=== PATIENT | male | born 1990 | race Caucasian/White ===

== ENCOUNTER 2017-01-24 23:53 | Emergency (ER) | payer OTHER ==
[2017-01-25 00:09] VITALS: TEMP 97.6; BMI 26.5
[2017-01-25] MEDS ORDERED: FAMOTIDINE 20 MG/50 ML IVPB 50 ML IVPB ONE ×2 (00:11→00:24)
[2017-01-25] MEDS ORDERED: methylPREDNISolone NA SUCC 125 MG/2 ML VIAL ONE (00:11)
[2017-01-25] MEDS ORDERED: methylPREDNISolone NA SUCC 125 MG/2 ML VIAL IVPB ONE (00:24)
[2017-01-25] MEDS ORDERED: SODIUM CHLORIDE 0.9% 1000 ML INFUS.BAG IV ONE (00:24)
--- NOTE | 2017-01-25 00:47 | PDOC ---
History of Present Illness - General Chief Complaint: Allergic Reaction Stated Complaint: ALLERGIC REACTION Time Seen by Provider: 01/25/17 00:10 History Source: Patient Exam Limitations: No Limitations - History of Present Illness Initial Comments: 01/25/17 00:43 Patient is a 26 year old male with no pmhx c/o allergic reaction since 8 am this morning. States not allergies to any meds of food, however woke up with some itching then tonight started to have hives which started to spread over the body. States he feels a little tightness in the throat. Denies SOB, PMD: Dr. Justin PMH: as above PSOCHX: neg etoh, durg, cig ALL: beeswax GENERAL/CONSTITUTIONAL: [No fever or chills. No weakness. No weight change.] HEAD, EYES, EARS, NOSE AND THROAT: [No change in vision. No ear pain or discharge. No sore throat.] CARDIOVASCULAR: [No chest pain or shortness of breath.] RESPIRATORY: [No cough, wheezing, or hemoptysis.] GASTROINTESTINAL: [No nausea, vomiting, diarrhea or constipation. No rectal bleeding.] GENITOURINARY: [No dysuria, frequency, or change in urination.] MUSCULOSKELETAL: [No joint or muscle swelling or pain. No neck or back pain.] SKIN AND BREASTS: (+) rash or easy bruising.] NEUROLOGIC: [No headache, vertigo, loss of consciousness, or loss of sensation.] PSYCHIATRIC: [No depression or anxiety.] ENDOCRINE: [No increased thirst. No abnormal weight change.] HEMATOLOGIC/LYMPHATIC: [No anemia, easy bleeding, or history of blood clots.] ALLERGIC/IMMUNOLOGIC: [No hives or skin allergy. No latex allergy.] GENERAL: [The patient is awake, alert, and fully oriented, in no acute distress. ] HEAD: [Normal with no signs of trauma.] EYES: [Pupils equal, round and reactive to light, extraocular movements intact, sclera anicteric, conjunctiva clear.] ENT: [Ears normal, nares patent, oropharynx clear without exudates. Moist mucous membranes, uvula midline, no swelling in the throat] NECK: [Normal range of motion, supple without lymphadenopathy, JVD, or masses.] LUNGS: [Breath sounds equal, clear to auscultation bilaterally. No wheezes, and no crackles.] HEART: [Regular rate and rhythm, normal S1 and S2 without murmur, rub.] ABDOMEN: [Soft, nontender, normoactive bowel sounds. No guarding, no rebound. No masses.] EXTREMITIES: [Normal range of motion, no edema. No clubbing or cyanosis. No cords, erythema, or tenderness.] NEUROLOGICAL: [Cranial nerves II through XII grossly intact. Normal speech, normal gait.] PSYCH: [Normal mood, normal affect.] SKIN: (+) erythema generalized, (+) hives generalized noted.] 01/25/17 00:47 Past History - Past Medical History Allergies/Adverse Reactions: Allergies Allergy/AdvReac Type Severity Reaction Status Date / Time beeswax Allergy Itching Verified 01/25/17 00:09 Home Medications: Ambulatory Orders Ibuprofen [Motrin] 800 mg PO TID #20 tablet 05/31/14 Oxycodone HCl/Acetaminophen [Percocet 5-325 mg Tablet] 1 - 2 tab PO Q6H #20 tablet 05/31/14 Diphenhydramine HCl [Benadryl -] 50 mg PO Q6H #28 capsule 01/25/17 Epinephrine [Epipen 2-Ronak] 0.3 mg IJ ASDIR #1 kit 01/25/17 Famotidine [Pepcid] 20 mg PO DAILY #5 tablet 01/25/17 Prednisone [Deltasone -] 40 mg PO DAILY #6 tablet 01/25/17 - Psycho/Social/Smoking Cessation Hx Anxiety: No Suicidal Ideation: No Smoking Status: No Smoking History: Unknown if ever smoked Have you smoked in the past 12 months: No Number of Cigarettes Smoked Daily: 1 Information on smoking cessation initiated: No Hx Alcohol Use: No Drug/Substance Use Hx: No Substance Use Type: None *Physical Exam - Vital Signs Last Vital Signs Temp Pulse Resp BP Pulse Ox 97.6 F 67 18 128/64 98 01/25/17 00:06 01/25/17 00:06 01/25/17 00:06 01/25/17 00:06 01/25/17 00:06 ED Treatment Course - Medications Given in the ED: ED Medications Discontinued Medications Generic Name Dose Route Start Last Admin Trade Name Freq PRN Reason Stop Dose Admin Diphenhydramine HCl 50 mg 01/25/17 00:24 01/25/17 00:27 Benadryl Injection - IVPUSH 01/25/17 00:25 50 mg ONCE ONE Administration Methylprednisolone Sodium Succinate 125 mg 01/25/17 00:24 01/25/17 00:28 Solu-Medrol - IVPB 01/25/17 00:25 125 mg ONCE ONE Administration Sodium Chloride 1,000 ml 01/25/17 00:24 01/25/17 00:27 Normal Saline - IV 01/25/17 00:25 1,000 ml ONCE ONE Administration Medical Decision Making - Medical Decision Making 01/25/17 00:48 Patient is a 26 year old male with no pmhx c/o allergic reaction since 8 am this morning. Allergy unknown, not anaphylaxis will give benadryl 50mg IV, Solumedrol 125mg IV, Pepcid 20mg IV. 01/25/17 02:12 Hive resolving, no stridor, no sob I discussed the physical exam findings, ancillary test results and final diagnoses with the patient. I answered all of the patient's questions. The patient was satisfied with the care received and felt comfortable with the discharge plan and treatment plan. The Patient agrees to follow up with the primary care physician within 24-72 hours. *DC/Admit/Observation/Transfer Diagnosis at time of Disposition: Allergic reaction Qualifiers: Encounter type: initial encounter Qualified Code(s): T78.40XA - Allergy, unspecified, initial encounter - Discharge Dispostion Disposition: HOME Condition at time of disposition: Stable - Prescriptions Prescriptions: Diphenhydramine HCl [Benadryl -] 50 mg PO Q6H #28 capsule Prednisone [Deltasone -] 40 mg PO DAILY #6 tablet Epinephrine [Epipen 2-Ronak] 0.3 mg IJ ASDIR #1 kit Famotidine [Pepcid] 20 mg PO DAILY #5 tablet - Referrals Referrals: Vivek Chirinos MD [Staff Physician] - - Patient Instructions Printed Discharge Instructions: DI for General Allergic Reactions Additional Instructions: Your Discharge Instructions: You must call primary care physician within 24 hours to arrange follow-up. Return to the Emergency Department with any new, persistent or worsening symptoms, for fever, chills, SOB, dizziness or any other concerning changes that may occur.
[2017-01-25 03:03] VITALS: BP 130/76; PULSE 68
== END 2017-01-25 03:03 | disposition home or self-care (01) ==
LOC: JER 23:53
DX: L50.0 Allergic urticaria (principal)
CPT/HCPCS: 99282-25

== ENCOUNTER 2017-01-27 17:23 | Emergency (ER) | payer OTHER ==
[2017-01-27 17:33] VITALS: BP 114/68; PULSE 84; TEMP 98.4; BMI 27.2
--- NOTE | 2017-01-27 18:34 | PDOC ---
History of Present Illness - General Chief Complaint: Allergic Reaction Stated Complaint: Allergic Reaction Time Seen by Provider: 01/27/17 18:34 - History of Present Illness Initial Comments: Patient is a 26 year old male with no pmhx complaining of rash, lip swelling, and previous throat swelling over the past few days. States that he is not allergic to anything but felt an itch in his lower abdomen on three days ago which began to spread over his trunk. He came to the ED the next day and was given steroids, famotidine, and an epi pen. He noticed a flare up of his rash yesterday and used his epi pen after which it improved. He noticed the rash starting to flare up again today so he decided to come in. Denies shortness of breath or any other symptoms besides the itching. 01/27/17 18:38 01/27/17 19:02 01/27/17 21:33 Past History - Past Medical History Allergies/Adverse Reactions: Allergies Allergy/AdvReac Type Severity Reaction Status Date / Time bee pollen Allergy Verified 01/27/17 19:57 BEES Allergy Uncoded 01/27/17 18:43 Home Medications: Ambulatory Orders Diphenhydramine HCl [Benadryl Capsule -] 50 mg PO Q6H #28 capsule 01/25/17 Epinephrine [Epipen 2-Ronak] 0.3 mg IJ ASDIR #1 kit 01/25/17 Famotidine [Pepcid] 20 mg PO DAILY #5 tablet 01/25/17 Prednisone [Deltasone -] 20 mg PO DAILY #14 tablet 01/27/17 Other medical history: NONE - Suicide/Smoking/Psychosocial Hx Smoking Status: No Smoking History: Current some day smoker Have you smoked in the past 12 months: No Number of Cigarettes Smoked Daily: 4 Information on smoking cessation initiated: No Hx Alcohol Use: Yes (SOCIAL) Drug/Substance Use Hx: No Substance Use Type: None Review of Systems - Review of Systems Constitutional: No: Chills, Diaphoresis, Fever HEENTM: No: Blurred Vision, Tearing Respiratory: No: Cough, Orthopnea, Shortness of Breath, Wheezing Cardiac (ROS): No: Chest Pain, Edema, Irregular Heart Rate *Physical Exam - Vital Signs Last Vital Signs Temp Pulse Resp BP Pulse Ox 98.4 F 84 20 114/68 97 01/27/17 17:29 01/27/17 17:29 01/27/17 17:29 01/27/17 17:29 01/27/17 17:29 - Physical Exam General Appearance: Yes: Nourished, Appropriately Dressed. No: Apparent Distress HEENT: positive: EOMI, JAZIEL, Normal ENT Inspection, Normal Voice, TMs Normal, Pharynx Normal Neck: positive: Trachea midline, Normal Thyroid, Supple. negative: Tender, Rigid Respiratory/Chest: positive: Lungs Clear, Normal Breath Sounds. negative: Chest Tender, Respiratory Distress, Accessory Muscle Use Cardiovascular: positive: Regular Rhythm, Regular Rate, S1, S2. negative: Edema , JVD, Murmur Gastrointestinal/Abdominal: positive: Normal Bowel Sounds, Flat, Soft. negative : Tender Musculoskeletal: positive: Normal Inspection Extremity: positive: Erythema, Other (Lacy urticarial rash across torso and and legs bilaterally.) Integumentary: positive: Dry, Warm. negative: Normal Color Neurologic: positive: Fully Oriented, Alert, Normal Mood/Affect Medical Decision Making - Medical Decision Making 26 year male without past medical history presenting with pruritic urticarial rash across abdomen and bilateral flanks. Was not able to control his symptoms with famotidine or prednisone. Gave patient 25 mg of Benadryl with good relief. Will send home with higher dose of tapered steroids and instructions to use Benadryl and topical hydrocortisone. 01/27/17 21:33 01/27/17 21:33 *DC/Admit/Observation/Transfer Diagnosis at time of Disposition: Urticaria - Discharge Dispostion Disposition: HOME Condition at time of disposition: Improved Admit: No - Prescriptions Prescriptions: Prednisone [Deltasone -] 20 mg PO DAILY #14 tablet - Referrals Referrals: Vivek Chirinos MD [Primary Care Provider] - - Patient Instructions Additional Instructions: Please take 3 pills each day for 2 days, 2 pills each day for three days, then 1 pill daily for two days. Please return if the symptoms get worse or don't improve in a few days.
--- NOTE | 2017-01-27 21:37 | PDOC ---
Attending Attestation - Resident Resident Name: Veronica Callaway - ED Attending Attestation I have performed the following: I have examined & evaluated the patient, The case was reviewed & discussed with the resident, I agree w/resident's findings & plan, Exceptions are as noted - HPI HPI: 01/27/17 21:33 26-year-old male presents to the ER with worsening urticarial rash to the bilateral flanks abdomen and pelvis that is not effectively controlled by H2 blockers and prednisone-40 mg daily prescribed earlier. Patient reports self administering IM epinephrine for severe pruritus. - Physicial Exam PE: 01/27/17 21:34 Patient is awake and alert, afebrile, hemodynamically stable. There is no evidence of facial or oropharyngeal angioedema; no airway issues are present; there is no stridor pooling secretions. There is diffuse urticarial rash to trunk, bilateral flanks, lower abdomen and pelvis bilaterally. There is no petechial rash. - Medical Decision Making 01/27/17 21:36 26-year-old male with worsening urticarial rash without facial or oropharyngeal angioedema. We will administer Benadryl and will discharge with antihistamines and a prolonged prednisone taper. Will discharge.
== END 2017-01-27 21:46 | disposition home or self-care (01) ==
LOC: JER 17:23
PROC: 3E023GC Introduction of Other Therapeutic Substance into Muscle, Percutaneous Approach (ICD-10-PCS; principal; 2017-01-27)
DX: L50.9 Urticaria, unspecified (principal); F17.210 Nicotine dependence, cigarettes, uncomplicated
CPT/HCPCS: 99282-25

== ENCOUNTER 2019-08-06 15:51 | Emergency (ER) | payer OTHER ==
[2019-08-06] MEDS ORDERED: SODIUM CHLORIDE 1,000 ML IV STA (16:01)
[2019-08-06 16:03] VITALS: BP 143/66; PULSE 61; TEMP 98.6; BMI 27.8
[2019-08-06 16:55] LABS: BASO % 1.2 % (0-2.0); EOS % 6.4 % (0-4.5); HEMATOCRIT 45.3 % (35.4-49); HEMOGLOBIN 15.5 GM/dL (11.7-16.9); LYMPH % 35.4 % (8-40); MCH 30.7 pg (25.7-33.7); MCHC 34.3 g/dl (32.0-35.9); MEAN CELL VOLUME 89.6 fl (80-96); MEAN PLT VOLUME 7.8 fl (7.5-11.1); MONO % 10.1 % (3.8-10.2); NEUT % 46.9 % (42.8-82.8); PLATELET COUNT 316 K/MM3 (134-434); RBC 5.06 M/mm3 (4.00-5.60); WHITE BLOOD COUNT 5.2 K/mm3 (4.0-10.0)
--- NOTE | 2019-08-06 16:59 | PDOC ---
History of Present Illness - General Chief Complaint: Pain Stated Complaint: PELVIC PAIN Time Seen by Provider: 08/06/19 16:00 History Source: Patient Exam Limitations: No Limitations - History of Present Illness Initial Comments: 08/06/19 16:52 Pt is a 29 y/o male with a history of alopecia areata who presents to the ED with R pelvic pain that radiates into his testicle since May. He was in the ED for similar symptoms on 07/25/19. He had a negative GC/chlamydia screen at that time and had a scrotal US. The US showed a 1.4cm epidydimal cyst. The patient states he has an appointment in 3 days with urology. He states he came to the ED to get all the information he possibly can prior to seeing urology. He denies any fevers or chills. He states he feels the vasculature in his scrotum has increased and that is worrying him. He denies any dysuria. He states a few days ago he noticed some blood when he urinated. He admits to having some back pain as well. Past History - Past Medical History Allergies/Adverse Reactions: Allergies Allergy/AdvReac Type Severity Reaction Status Date / Time bee pollen Allergy Verified 08/06/19 16:02 BEES Allergy Uncoded 08/06/19 16:02 Home Medications: Ambulatory Orders Diphenhydramine HCl [Benadryl Capsule -] 50 mg PO Q6H #28 capsule 01/25/17 Epinephrine [Epipen 2-Ronak] 0.3 mg IJ ASDIR #1 kit 01/25/17 Famotidine [Pepcid] 20 mg PO DAILY #5 tablet 01/25/17 predniSONE [Deltasone -] 20 mg PO DAILY #14 tablet 01/27/17 Doxycycline Hyclate 100 mg PO BID #20 tablet 07/25/19 COPD: No - Psycho Social/Smoking Cessation Hx Smoking Status: No Smoking History: Never smoked Have you smoked in the past 12 months: No Number of Cigarettes Smoked Daily: 4 Hx Alcohol Use: No Drug/Substance Use Hx: Yes (marijuana) Substance Use Type: None Review of Systems - Review of Systems Comments:: 08/06/19 16:56 Review of Systems Able to Perform ROS?: Yes Constitutional: No: Fever, Chills, Loss of Appetite, Night Sweats, Weakness HEENTM: No: Eye Pain, Vision changes, Ear Pain, Throat Pain, Throat Swelling, Mouth Pain, Difficulty Swallowing Respiratory: No: Cough, Shortness of Breath, Wheezing, Sputum Production Cardiac (ROS): No: Chest Pain, Chest Tightness, Palpitations, Irregular Heart Beat, Edema ABD/GI: No: Nausea, Vomiting, Abdominal Pain, Diarrhea; + RLQ abdominal pain, R pelvic pain radiating into his testicle : No Dysuria, No Hematuria, No Frequency, No Urgency Musculoskeletal: No: Muscle Pain, Back Pain, Joint Pain, Muscle Weakness, Neck Pain Integumentary: No: Lesions, Rash Neurological: No: Headache, Numbness, Tingling, Weakness, Speech Difficulties *Physical Exam - Vital Signs Last Vital Signs Temp Pulse Resp BP Pulse Ox 98.6 F 61 18 143/66 98 08/06/19 16:00 08/06/19 16:00 08/06/19 16:00 08/06/19 16:00 08/06/19 16:00 - Physical Exam 08/06/19 16:57 General Appearance: Nourished, Appropriately Dressed, No Distress HEENT: EOMI, Normal Voice, No Muffled/Hoarse voice, No Nasal Congestion, No Rhinorrhea, Hearing Grossly Normal Neck: Supple, No Lymphadenopathy (R), No Lymphadenopathy (L), No Rigidity, No Decreased range of motion Respiratory/Chest: Lungs Clear, Normal Breath Sounds. No Respiratory Distress, No Accessory Muscle Use; Good air entry b/l, no wheezes/rales/rhonchi, no retractions Cardiovascular: Regular Rhythm, Regular Rate, S1, S2 Gastrointestinal/Abdominal: Normal Bowel Sounds, Soft. Non-tender, No Guarding, No Rebound, No Rigidity; minimal reproducible RLQ and right pelvic tenderness to palpation. Possible slight inguinal hernia appreciated on the right. : no penile drainage; no gross testicular masses appreciated; No abnormal vasculature appreciated to the penis or testicles. Musculoskeletal: Normal Inspection. No Decreased Range of Motion Extremity: Normal Capillary Refill, Normal Inspection Integumentary: Normal Color, Dry. 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 Plan: -labs ordered -NS ordered -CTAP with contrast ordered -Will reassess 08/06/19 19:[address] scan are within normal limits. He has been advised that he must follow up with the urologist at his appointment in 3 days. He understands and agrees with treatment and plan. He is stable for discharge and he understands and agrees with treatment and plan. Discharge - Discharge Information Problems reviewed: Yes Clinical Impression/Diagnosis: Pelvic pain in male Condition: Stable Disposition: HOME - Follow up/Referral - Patient Discharge Instructions Patient Printed Discharge Instructions: DI for Pelvic Pain, DI for Testicular Pain Additional Instructions: Be sure to follow up with the urologist in [address] days as scheduled. Your CT scan was negative for anything emergent. Your lab work was all within normal limits. Get plenty of rest and drink plenty of fluids. - Post Discharge Activity Work/Back to School Note: Back to Work
[2019-08-06 17:45] LABS: PH,URINE 6.5 (5.0-8.0); URINE APPEARANCE CLEAR; URINE BILIRUBIN NEGATIVE (NEGATIVE); URINE COLOR YELLOW; URINE GLUCOSE (UA) NEGATIVE (NEGATIVE); URINE KETONE NEGATIVE (NEGATIVE); URINE LEUK ESTERASE NEGATIVE (NEGATIVE); URINE NITRITE NEGATIVE (NEGATIVE); URINE PROTEIN NEGATIVE (NEGATIVE); URINE UROBILINOGEN 0.2 mg/dL (0.2-1.0)
[2019-08-06 18:55] LABS: CREATININE 1.1 mg/dL (0.55-1.3); POTASSIUM 4.1 mmol/L (3.5-5.1)
[2019-08-06 18:58] LABS: ALBUMIN 4.2 g/dl (3.4-5.0); BILIRUBIN,TOTAL 0.4 mg/dL (0.2-1); TOT PROT 8.4 g/dl (6.4-8.2)
[2019-08-06 19:13] LABS: BLOOD UREA NITROGEN 15.6 mg/dL (7-18); CALCIUM 9.2 mg/dL (8.5-10.1)
== END 2019-08-06 19:43 | disposition home or self-care (01) ==
LOC: JER 15:51 → JERFT 15:51 → JER 19:43
DX: R10.2 Pelvic and perineal pain (principal)
CPT/HCPCS: 36415; 74177-TC; 80053; 81003; 83690; 85025; 87086; 99285-25; Q9967

== ENCOUNTER 2021-06-26 04:49 | Day surgery (SDC) | payer OTHER ==
[2021-06-24 14:18] VITALS: BMI 27.8
[2021-06-26] MEDS ORDERED: LIDOCAINE HCL/PF 2% SDV 5ML VIAL ONE (07:04)
[2021-06-26] MEDS ORDERED: KETOROLAC TROMETHAMINE 30 MG/1 ML VIAL ONE (07:04)
[2021-06-26] MEDS ORDERED: MIDAZOLAM HCL 2 MG/2 ML SINGLE DOSE VIAL ONE (07:06)
[2021-06-26] MEDS ORDERED: KETAMINE HCL 200 MG/20 ML VIAL ONE (07:06)
[2021-06-26] MEDS ORDERED: PROPOFOL 20 ML ONE ×4 (07:06→08:10)
[2021-06-26] MEDS ORDERED: LIDOCAINE HCL 1%, 10 MG/ML (20ML VIAL) ONE (07:17)
[2021-06-26] MEDS ORDERED: ACETAMINOPHEN INJECTION 100 ML IVPB ONE (07:26)
[2021-06-26] MEDS ORDERED: ceFAZolin SODIUM 1 GM VIAL IVPB ONE (07:50)
[2021-06-26] MEDS ORDERED: BUPIVACAINE HCL/PF 0.5% (5MG/ML) 10 ML VIAL NR ONE (08:00)
[2021-06-26] MEDS ORDERED: oxyCODONE HCL 5 MG TABLET PO PRN (08:26)
[2021-06-26] MEDS ORDERED: ELECTROLYTE-148 SOLN 1,000 ML IV SCH (08:30)
[2021-06-26] MEDS ORDERED: ACETAMINOPHEN INJECTION 200 ML IVPB ONE (08:38)
[2021-06-26] MEDS ORDERED: DEXMEDETOMIDINE HCL 200 MCG/2 ML IVPB ONE (08:39)
[2021-06-26] MEDS ORDERED: oxyCODONE HCL 5 MG TABLET ONE (10:06)
[2021-06-26 12:41] VITALS: TEMP 97.1
[2021-06-26 12:43] VITALS: BP 115/72; PULSE 64
== END 2021-06-26 11:26 | disposition home or self-care (01) ==
LOC: JASU-SURG 04:49
PROVIDERS: ATTEND Urology
PROC: 0VBJ0ZZ Excision of Right Epididymis, Open Approach (ICD-10-PCS; 2021-06-26)
PROC: 0VB60ZZ Excision of Right Tunica Vaginalis, Open Approach (ICD-10-PCS; principal; 2021-06-26 07:30)
DX: N43.3 Hydrocele, unspecified (principal); N43.40 Spermatocele of epididymis, unspecified
CPT/HCPCS: 88302-TC; 88304-TC; 94760

== ENCOUNTER 2024-06-25 16:17 | Emergency (ER) | payer OTHER ==
[2024-06-25 16:33] VITALS: RESP 20; BMI 29.9
[2024-06-25] MEDS ORDERED: ONDANSETRON *ODT* 4 MG TABLET ONE (17:19)
[2024-06-25] MEDS ORDERED: IBUPROFEN 600 MG TABLET (FP) PO ONE (17:19)
[2024-06-25] MEDS ORDERED: ACETAMINOPHEN 500 MG TABLET (FP) ONE (17:19)
[2024-06-25] MEDS: IBUPROFEN 600 MG TABLET (FP) PO ONE (17:23)
[2024-06-25] MEDS: ACETAMINOPHEN 500 MG TABLET (FP) PO ONE (17:23)
[2024-06-25] MEDS: ONDANSETRON *ODT* 4 MG TABLET SL ONE (17:23)
[2024-06-25 17:34] LABS: URINE APPEARANCE CLEAR; URINE BILIRUBIN NEGATIVE (NEGATIVE); URINE COLOR YELLOW; URINE GLUCOSE (UA) NEGATIVE (NEGATIVE); URINE KETONE TRACE (NEGATIVE); URINE LEUK ESTERASE NEGATIVE (NEGATIVE); URINE NITRITE NEGATIVE (NEGATIVE); URINE PROTEIN TRACE (NEGATIVE)
[2024-06-25 18:47] VITALS: BP 120/68; PULSE 98; TEMP 99.5
== END 2024-06-25 18:59 | disposition home or self-care (01) ==
LOC: JER 16:17
DX: R53.81 Other malaise (principal); R50.9 Fever, unspecified; R11.0 Nausea; R53.83 Other fatigue; R06.02 Shortness of breath; B34.9 Viral infection, unspecified; Z20.822 Contact with and (suspected) exposure to COVID-19
CPT/HCPCS: 0241U-QW; 71046-TC-FY; 81003; 87086; 99284-25; Q0162